=== PATIENT | male | born 1960 ===

== ENCOUNTER → 2017-05-17 | Outpatient (CLI) | payer OTHER ==
[2017-05-17 13:34] LABS: CHOLESTEROL/HDL RATIO 5.3; PROSTATE SPECIFIC ANTIGEN 0.421 ng/ml (0.000-4.000)
== END | disposition home or self-care (01) ==
LOC: C.LABMFLN 08:08
PROVIDERS: ATTEND Family Medicine
DX: Z13.1 Encounter for screening for diabetes mellitus (principal); Z13.220 Encounter for screening for lipoid disorders; Z12.5 Encounter for screening for malignant neoplasm of prostate